=== PATIENT | male | born 1995 | race Caucasian/White ===

== ENCOUNTER 2023-09-29 16:15 | Emergency (ER) | payer SELFPAY ==
[2023-09-29] MEDS: Ondansetron 4 MG Tab.DIS PO ONE (16:41)
== END 2023-09-29 19:04 | disposition home or self-care (01) ==
LOC: MW.ED 16:15
DX: F10.129 Alcohol abuse with intoxication, unspecified (principal); Y90.9 Presence of alcohol in blood, level not specified
CPT/HCPCS: 99284; A9270; 99283